=== PATIENT | female | born 1990 | race Caucasian/White ===

== ENCOUNTER 2016-09-11 17:12 | Emergency (ER) | payer MEDICAID, OTHER ==
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
[2016-09-11] MEDS ORDERED: traMADol HCl 50 MG TAB ONE (18:21)
== END 2016-09-11 18:55 | disposition home or self-care (01) ==
LOC: NAV ERS 17:12
DX: S96.911A Strain of unspecified muscle and tendon at ankle and foot level, right foot, initial encounter (principal); F17.210 Nicotine dependence, cigarettes, uncomplicated; Z79.899 Other long term (current) drug therapy; W19.XXXA Unspecified fall, initial encounter

== ENCOUNTER 2017-03-10 17:35 | Emergency (ER) | payer OTHER ==
[2017-03-10] MEDS ORDERED: Ondansetron HCl/PF 4 MG/2 ML Vial ONE (18:04)
[2017-03-10] MEDS ORDERED: Sodium Chloride 0.9% 1,000 ML ONE ×3 (18:04→20:23)
[2017-03-10 18:44] LABS: #Basophils 0.1 thou/uL (0.0-0.2); #Eosinphils 0.3 thou/uL (0.0-0.7); #Lymphocytes 1.4 thou/uL (1.20-3.40); #Neutrophils 8.3 thou/uL (1.40-6.50); %Basophils 0.7 % (0.0-1.0); %Eosinophils 2.8 % (0.0-10.0); %Lymphocytes 12.3 % (21.0-51.0); %Neutrophils 75.3 % (42.0-75.0); Hemoglobin 9.6 g/dL (12.0-16.0); Mean Corpuscular HGB CONC 33.2 g/dL (32.0-36.0); Mean Corpuscular Hemoglobin 30.8 pg (27.0-31.0); Mean Corpuscular Volume 92.7 fl (81.0-99.0); Mean Platelet Volume 5.4 fL (7.4-10.4); Platelet Count 342 thou/uL (130-400); RBC Distribution Width 13.6 % (11.5-14.5); Red Blood Cell (RBC) Count 3.12 mill/uL (4.20-5.40)
[2017-03-10 19:04] LABS: ALT (SGPT) 103 U/L (8-55); AST (SGOT) 49 U/L (5-34); Albumin 3.6 g/dL (3.5-5.0); Alkaline Phosphatase 61 U/L (40-150); Anion Gap 13 mmol/L (10-20); BUN (Urea Nitrogen) 12 mg/dL (7.0-18.7); Bilirubin, Total 0.8 mg/dL (0.2-1.2); Calc. Creatinine Clearance 0 mL/min (70-130); Calcium 8.8 mg/dL (7.8-10.44); Carbon Dioxide 25 mmol/L (22-29); Chloride 102 mmol/L (98-107); Estimated GFR-MDRD Greater than 90; Globulin 3.9 g/dL (2.4-3.5); Glucose 90 mg/dL (70-105); Potassium 3.7 mmol/L (3.5-5.1); Protein, Total 7.5 g/dL (6.0-8.3); Sodium 136 mmol/L (136-145)
[2017-03-10 19:58] LABS: Bilirubin Negative (Negative); Blood, Urine Negative (Negative); Clarity Slightly Cloudy (Clear); Glucose, Urine (Dipstick) Negative (Negative); Leukocyte Trace (Negative); Nitrite Positive (Negative); Protein, Urine (Dipstick) Trace mg/dL (Neg-Trace); pH, Urine 5.5 (5.0-9.0)
[2017-03-10 19:59] LABS: Pregnancy Test - Urine (BHCG) POSITIVE (Negative); Pregu Control Background? CLEAR/WHITE (CLR/WHITE); Pregu Control Bar Appear? YES (CONTROL BAR); Specific Gravity 1.028 (1.002-1.036)
[2017-03-10 20:08] LABS: Cocaine Metabolite Screen Not Detected (NotDetected); Methamphetamine Detected (NotDetected); Phencyclidine (PCP) Not Detected (NotDetected); THC/Cannabinoid Screen Detected (NotDetected)
[2017-03-10 20:09] LABS: Amphetamine Detected (NotDetected); Barbiturates Screen Not Detected (NotDetected); Benzodiazepine Screen Not Detected (NotDetected); Medtox Control Line Valid? VALID (VALID); Methadone Not Detected (NotDetected); Opiate Screen Detected (NotDetected); Oxycodone Screen Not Detected (NotDetected); Tricyclic Screen Not Detected (NotDetected)
[2017-03-10 20:11] LABS: Bacteria/HPF 3+ HPF (None Seen); Hyaline Casts/LPF NONE SEEN LPF (0-3 Hyaline); RBC/HPF 0-3 HPF (0-3); Renal Epithelial None Seen HPF (0-3); Squamous Epithelial 0-3 HPF (0-3); Transitional Epithelial NONE SEEN HPF (0-3); WBC/HPF 0-3 HPF (0-3)
[2017-03-10] MEDS ORDERED: Sodium Chloride 0.9% 250 ML 250 ML ONE (20:43)
== END 2017-03-10 21:01 | disposition short-term general hospital (02) ==
LOC: NAV ERS 17:35
DX: O00.90 Unspecified ectopic pregnancy without intrauterine pregnancy (principal); O99.019 Anemia complicating pregnancy, unspecified trimester; D64.9 Anemia, unspecified; O99.320 Drug use complicating pregnancy, unspecified trimester; F19.10 Other psychoactive substance abuse, uncomplicated; O99.330 Smoking (tobacco) complicating pregnancy, unspecified trimester
CPT/HCPCS: 80053; 80306; 81003; 81015; 81025; 84702; 85025; 86850; 86900; 86901; 87077; 87086; 87186; 96361; 96374; 96375; 96376; 99292; J2270; J2405; J7050; P9016

== ENCOUNTER 2017-12-11 12:23 | Emergency (ER) | payer SELFPAY ==
[2017-12-11] MEDS ORDERED: Lidocaine 1% 20 ML MDV ONE (12:39)
[2017-12-11 13:23] LABS: BHCG - Serum Negative (NEGATIVE); Pregs Control Bar Appear? YES (CONTROL BAR)
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
== END 2017-12-11 14:35 ==
LOC: NAV ERS 12:23
DX: S41.141A Puncture wound with foreign body of right upper arm, initial encounter (principal); S51.801A Unspecified open wound of right forearm, initial encounter; M54.2 Cervicalgia; F17.210 Nicotine dependence, cigarettes, uncomplicated; F41.9 Anxiety disorder, unspecified; F32.9 Major depressive disorder, single episode, unspecified; F20.9 Schizophrenia, unspecified; F60.3 Borderline personality disorder; V89.2XXA Person injured in unspecified motor-vehicle accident, traffic, initial encounter
CPT/HCPCS: 24200; 36416; 70450; 72125; 84703; J2001

== ENCOUNTER 2020-01-15 17:47 | Emergency (ER) | payer OTHER ==
[2020-01-17 14:21] LABS: SARS-CoV-2 MS2 Positive; SARS-CoV-2 N Gene Negative; SARS-CoV-2 S Gene Negative; SARS-CoV-2 orf1ab Negative
== END 2020-01-15 18:20 | disposition home or self-care (01) ==
LOC: NAV ERS 17:47
DX: R50.9 Fever, unspecified (principal); Z20.828 Contact with and (suspected) exposure to other viral communicable diseases; F41.9 Anxiety disorder, unspecified; F32.9 Major depressive disorder, single episode, unspecified; F17.210 Nicotine dependence, cigarettes, uncomplicated
CPT/HCPCS: 87635; 99283; U0003

== ENCOUNTER 2020-01-19 21:40 | Emergency (ER) | payer OTHER ==
[2020-01-19] MEDS ORDERED: Fentanyl 100 MCG/2 ML VIAL ONE (21:59)
[2020-01-19] MEDS ORDERED: Sodium Chloride 0.9% 1,000 ML ONE (21:59)
[2020-01-19 22:23] LABS: #Basophils 0.1 thou/uL (0.0-0.2); #Eosinphils 0.1 thou/uL (0.0-0.7); #Lymphocytes 3.6 thou/uL (1.20-3.40); #Monocytes 1.1 thou/uL (0.11-0.59); #Neutrophils 9.1 thou/uL (1.40-6.50); %Basophils 0.9 % (0.0-1.0); %Eosinophils 0.4 % (0.0-10.0); %Lymphocytes 25.8 % (21.0-51.0); %Monocytes 7.5 % (0.0-10.0); %Neutrophils 65.3 % (42.0-75.0); Hemoglobin 12.2 g/dL (12.0-16.0); Mean Corpuscular HGB CONC 32.9 g/dL (32.0-36.0); Mean Corpuscular Hemoglobin 29.9 pg (27.0-31.0); Mean Corpuscular Volume 90.9 fL (78.0-98.0); Mean Platelet Volume 7.6 fL (7.4-10.4); Platelet Count 223 thou/uL (130-400); RBC Distribution Width 10.8 % (11.5-14.5); Red Blood Cell (RBC) Count 4.08 mill/uL (4.20-5.40)
[2020-01-19 22:38] LABS: Bilirubin Negative (Negative); Blood, Urine Large (Negative); Clarity Slightly Cloudy (Clear); Glucose, Urine (Dipstick) Negative (Negative); Ketone, Urine Negative (Negative); Leukocyte Large (Negative); Nitrite Positive (Negative); Protein, Urine (Dipstick) > or equal to 300 mg/dL (Neg-Trace); Urobilinogen 0.2 mg/dL (Less than 2)
[2020-01-19 22:41] LABS: ALT (SGPT) 30 U/L (8-55); AST (SGOT) 19 U/L (5-34); Albumin 3.9 g/dL (3.5-5.0); Alkaline Phosphatase 51 U/L (40-110); Anion Gap 13 mmol/L (10-20); BUN (Urea Nitrogen) 12 mg/dL (7.0-18.7); Bilirubin, Total 0.4 mg/dL (0.2-1.2); Calc. Creatinine Clearance 0 mL/min (70-130); Calcium 8.8 mg/dL (7.8-10.44); Carbon Dioxide 21 mmol/L (22-29); Chloride 106 mmol/L (98-107); Estimated GFR-MDRD Greater than 90; Glucose 89 mg/dL (70-105); Protein, Total 6.9 g/dL (6.0-8.3); Sodium 137 mmol/L (136-145)
[2020-01-19 22:45] LABS: RBC/HPF Greater than 50 HPF (0-3); WBC/HPF Greater Than 50 HPF (0-3)
[2020-01-19 22:46] LABS: Bacteria/HPF Rare-Few HPF (None Seen)
[2020-01-19 22:47] LABS: Pregnancy Test - Urine (BHCG) Negative (Negative); Pregu Control Background? CLEAR/WHITE (CLR/WHITE); Pregu Control Bar Appear? YES (CONTROL BAR)
[2020-01-19 22:50] LABS: Amphetamine Detected (NotDetected); Methamphetamine Detected (NotDetected); THC/Cannabinoid Screen Detected (NotDetected)
[2020-01-19 22:51] LABS: Barbiturates Screen Not Detected (NotDetected); Benzodiazepine Screen Not Detected (NotDetected); Cocaine Metabolite Screen Not Detected (NotDetected); Medtox Control Line Valid? VALID (VALID); Methadone Not Detected (NotDetected); Opiate Screen Not Detected (NotDetected); Oxycodone Screen Not Detected (NotDetected); Phencyclidine (PCP) Not Detected (NotDetected); Tricyclic Screen Not Detected (NotDetected)
[2020-01-19] MEDS ORDERED: Ketorolac Tromethamine 30 MG/ML VIAL ONE (23:15)
[2020-01-19] MEDS ORDERED: cefTRIAXone\\ROCEPHIN 1 GM VIAL ONE (23:15)
[2020-01-19] MEDS ORDERED: Potassium Chloride 20 MEQ TAB ONE (23:15)
[2020-01-19] MEDS ORDERED: Sodium Chloride 0.9% 100 ML ONE (23:22)
== END 2020-01-20 | disposition home or self-care (01) ==
LOC: NAV ERS 21:40
DX: N10 Acute pyelonephritis (principal); E87.6 Hypokalemia; Z71.6 Tobacco abuse counseling; F41.9 Anxiety disorder, unspecified; F32.9 Major depressive disorder, single episode, unspecified; F20.9 Schizophrenia, unspecified; F17.210 Nicotine dependence, cigarettes, uncomplicated
CPT/HCPCS: 36415; 80053; 80306; 81003; 81015; 81025; 85025; 87077; 87086; 87186; 96361; 96365; 96375; 99406; J0696; J1885; J3010; J3490; J7050